=== PATIENT | female | born 1955 | race African-American/Black ===

== ENCOUNTER 2016-12-16 23:55 | Emergency (ER) | payer BC | END 2016-12-17 02:30 | disposition home or self-care (01) | LOC: ER 23:55 | DX: M43.6 Torticollis (principal) ==

== ENCOUNTER 2018-07-22 18:13 | Emergency (ER) | payer BC ==
[~2018-07-22] VITALS: Ht 167.6 cm; Wt 105.2 kg
[~2018-07-22 18:13] MED LIST: ASPIRIN81 M2 PO; LEVOTHYROXINE 0.1 MG PO; LIPITOR40 MG PO; NAPROSYN500 MG PO; ROBAXIN500 MG PO; TRAMADOL 50 MG50 MG PO
[2018-07-22 19:12] LABS: ABSOLUTE NEUTROPHILS 3.2 thou/uL (1.4-8.2); BASOPHILS 0.2 % (0.0-2.0); EOSINOPHILS 2.4 % (0.0-3.0); HEMATOCRIT 37.1 % (37.0-47.0); HEMOGLOBIN 12.4 gm/dL (12.0-15.0); LYMPHOCYTES 20.5 % (24.0-44.0); MCH 29.7 pg (26.0-34.0); MCHC 33.5 g/dL (28.0-37.0); MCV 88.6 fL (80.0-100.0); MONOCYTES 11.3 % (1.0-8.0); PLATELET COUNT 174 thou/uL (150-400); POLYS 65.6 % (36.0-66.0); RBC 4.18 mil/uL (4.20-5.00); RDW 14.7 % (10.5-14.5); WBC 4.9 thou/uL (4.0-11.0)
[2018-07-22 19:16] LABS: URINE BILIRUBIN NEGATIVE (Negative); URINE BLOOD TRACE (Negative); URINE CLARITY CLEAR; URINE COLOR YELLOW; URINE GLUCOSE-RANDOM* NEGATIVE (Negative); URINE KETONES NEGATIVE (Negative); URINE LEUKOCYTES-REFLEX NEGATIVE (Negative); URINE NITRITE-REFLEX NEGATIVE (Negative); URINE PROTEIN (DIPSTICK) NEGATIVE (Negative); URINE UROBILINOGEN 0.2 E.U./dl (0.2-1.0)
[2018-07-22 19:19] LABS: CALCIUM 9.7 mg/dL (8.5-10.1); CREATININE 0.7 mg/dL (0.6-1.0); POTASSIUM 3.8 mmol/L (3.5-5.1)
[2018-07-22] MEDS ORDERED: NORFLEX100 MG PO (20:31)
[2018-07-22] MEDS ORDERED: IBUPROFEN 600600 M1 PO (20:31)
[2018-07-22 20:53] VITALS: BP 139/71
== END 2018-07-22 20:54 | disposition home or self-care (01) ==
LOC: ER 18:13
PROVIDERS: Emergency Medicine
DX: R10.84 Generalized abdominal pain (principal); M54.5 Low back pain; E78.00 Pure hypercholesterolemia, unspecified

== ENCOUNTER 2019-04-02 13:49 | Emergency (ER) | payer BC ==
[~2019-04-02] VITALS: Ht 167.6 cm; Wt 103.0 kg
[~2019-04-02 13:49] MED LIST changes: +IBUPROFEN 600600 M1 PO; +NORFLEX100 MG PO
[2019-04-02] MEDS ORDERED: VALIUM2 MG PO (16:04)
[2019-04-02 16:20] VITALS: BP 138/82
--- NOTE | 2019-04-03 08:30 | EKG ---
[place] [address] [address] [employer] [place] [address] ELECTROCARDIOGRAM REPORT Name: GARY ARTHUR Room #: [facility] Urias#: [id number] Admission: 04/02/19 Attend Phys: Discharge: 04/02/19 Date of : 53 Report #: [id number] THIS REPORT FOR: //name// [facility] ED Test Date: 2019-04-02 Test Time: 15:16:50 Pat Name: GARY ARTHUR Department: Room: Gender: F Election Clerk: : 1955 Requested By: Silvana German Order Number: [id number] MD: Anam Matute Measurements Intervals [place] Rate: 65 P: 41 [place]: 196 QRS: -11 QRSD: 98 T: 3 QT: 413 QTc: 430 Interpretive Statements Sinus rhythm No significant abnormality No previous ECG available for comparison Electronically Signed On 04-03-2019 8:30:04 MED SURG RN by Anam Matute [email or web address] <ELECTRONICALLY SIGNED> By: Anam Matute MD, [facility] 04/03/19 0830 1516 1516 Anam Matute MD, FACC /EPI
== END 2019-04-02 16:22 | disposition home or self-care (01) ==
LOC: ER 13:49
DX: M54.2 Cervicalgia (principal); R07.89 Other chest pain; E78.00 Pure hypercholesterolemia, unspecified; Z79.82 Long term (current) use of aspirin; Z79.899 Other long term (current) drug therapy